=== PATIENT | male | born 1995 | race Caucasian/White ===

== ENCOUNTER 2019-04-30 03:50 | Emergency (ER) | payer OTHER ==
[~2019-04-30] VITALS: Ht 172.7 cm; Wt 68.2 kg
[~2019-04-30 03:50] MED LIST: ALPR0.25 PO; LEVO500T48 PO; ONDA4TAB13 PO; PANT40TA4 PO
[2019-04-30 04:02] VITALS: Ht 172.7 cm; Wt 68.2 kg
[2019-04-30] MEDS ORDERED: morphine 4 MG/ML VIAL IM STA (04:13)
[2019-04-30] MEDS ORDERED: ACET500C5 PO (05:35)
[2019-04-30] MEDS ORDERED: IBUP-1545 PO (05:35)
[2019-04-30] MEDS ORDERED: TRAM50TA2 PO (05:53)
[2019-04-30 06:01] VITALS: BP 121/62; PULSE 71; RESP 18
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
== END 2019-04-30 06:00 | disposition home or self-care (01) ==
LOC: FTE 03:50
DX: S20.219A Contusion of unspecified front wall of thorax, initial encounter (principal); I49.9 Cardiac arrhythmia, unspecified; V49.49XA Driver injured in collision with other motor vehicles in traffic accident, initial encounter
CPT/HCPCS: 71046; 93005; 96372; J2270; Z7502